=== PATIENT | female | born 1955 | race Hispanic/Latino ===

== ENCOUNTER → 2018-11-10 | Outpatient (CLI) | payer MEDICARE ==
[~2018-11-10] MED LIST: BACL10TA PO; IBUP-2070 PO; LISI-613 PO; NYST5ORA7 TP; ONDA4TAB10 PO; OXYB5TAB10 PO; RANI150C4 PO; ROSU20TA30 PO; SERT100T12 PO
== END | disposition home or self-care (01) ==
LOC: RAH 12:37
PROVIDERS: ATTEND Family Medicine
DX: Z12.31 Encounter for screening mammogram for malignant neoplasm of breast (principal)
CPT/HCPCS: 77067

== ENCOUNTER 2019-09-03 14:34 | Emergency (ER) | payer MEDICARE ==
[~2019-09-03 14:34] MED LIST changes: -OXYB5TAB10 PO; +OXYB5TAB15 PO; -ROSU20TA30 PO; +ROSU20TA31 PO
[2019-09-03] MEDS ORDERED: ONDANSETRON HCL 4 MG/2 ML VIAL ONE (15:04)
[2019-09-03] MEDS ORDERED: SODIUM CHLORIDE 0.9% 1000ML 1,000 ML IV ONE (15:04)
[2019-09-03 15:08] LABS: BASOPHILS % (AUTO) 0.2 % (0.0-5.0); EOSINOPHILS % (AUTO) 0.1 % (0.0-8.0); HEMATOCRIT 43.8 % (36-48); LYMPHOCYTES % (AUTO) 7.6 % (21.0-51.0); MEAN CORPUSCULAR HEMOGLOBIN 27.7 pg (27.0-33.0); MEAN CORPUSCULAR HGB CONC 31.7 g/dL (32.0-36.0); MEAN CORPUSCULAR VOLUME 87.3 fL (79-99); MONOCYTES % (AUTO) 4.3 % (3.0-13.0); NEUTROPHILS % (AUTO) 87.5 % (40.0-77.0); PLATELET COUNT (AUTO) 337 K/uL (130-400); RED BLOOD CELL COUNT(AUTO) 5.02 MIL/uL (4.00-5.50); RED CELL DISTRIBUTION WIDTH 13.7 % (11.0-15.5); WHITE BLOOD COUNT (AUTO) 14.3 K/uL (4.8-10.8)
[2019-09-03 15:51] LABS: POTASSIUM 4.1 mmol/L (3.5-5.1)
[2019-09-03 16:02] LABS: ALBUMIN 3.5 g/dL (3.5-5.0); BILIRUBIN,TOTAL 0.4 mg/dL (0.2-1.0); TOTAL PROTEIN, SERUM 8.1 g/dL (6.0-8.3)
== END 2019-09-03 18:06 | disposition home or self-care (01) ==
LOC: EDH 14:34
DX: K52.9 Noninfective gastroenteritis and colitis, unspecified (principal); I10 Essential (primary) hypertension; Z90.49 Acquired absence of other specified parts of digestive tract; Z90.710 Acquired absence of both cervix and uterus
CPT/HCPCS: 36415; 80053; 83690; 85025; 87804 ×2; 96361; 96374; 99284; J2405; J7030

== ENCOUNTER 2019-09-11 22:58 | Emergency (ER) | payer MEDICARE | END 2019-09-12 01:31 | disposition home or self-care (01) | LOC: EDH 22:58 | DX: R13.10 Dysphagia, unspecified (principal); R49.0 Dysphonia; I10 Essential (primary) hypertension; Z90.49 Acquired absence of other specified parts of digestive tract; Z90.710 Acquired absence of both cervix and uterus; Z85.828 Personal history of other malignant neoplasm of skin | CPT/HCPCS: 70360; 71046 ==

== ENCOUNTER 2019-10-29 23:29 | Observation (INO) | payer MEDICARE ==
[~2019-10-29] VITALS: Ht 162.6 cm; Wt 87.1 kg
[2019-10-30] MEDS ORDERED: ONDANSETRON ODT 4 MG TAB ONE (01:07)
[2019-10-30 01:32] LABS: APPEARANCE,URINE Cloudy (CLEAR); BILIRUBIN,URINE Small (NEGATIVE); COLOR,URINE Dark Yellow (YELLOW); GLUCOSE, URINE (UA) Negative (NEGATIVE); KETONES,URINE Trace mg/dL (NEGATIVE); LEUKOCYTE ESTERASE ,URINE Negative (NEGATIVE); NITRATE,URINE Negative (NEGATIVE); OCCULT BLOOD,URINE Trace (NEGATIVE); PROTEIN,URINE Trace mg/dL (NEGATIVE)
[2019-10-30 01:34] LABS: BASOPHILS % (AUTO) 0.3 % (0.0-5.0); EOSINOPHILS % (AUTO) 0.9 % (0.0-8.0); HEMATOCRIT 40.9 % (36-48); LYMPHOCYTES % (AUTO) 17.4 % (21.0-51.0); MEAN CORPUSCULAR HEMOGLOBIN 27.2 pg (27.0-33.0); MEAN CORPUSCULAR HGB CONC 31.1 g/dL (32.0-36.0); MEAN CORPUSCULAR VOLUME 87.6 fL (79-99); MONOCYTES % (AUTO) 6.2 % (3.0-13.0); NEUTROPHILS % (AUTO) 74.9 % (40.0-77.0); PLATELET COUNT (AUTO) 275 K/uL (130-400); RED BLOOD CELL COUNT(AUTO) 4.67 MIL/uL (4.00-5.50)
[2019-10-30 01:43] LABS: CREATININE 1.2 mg/dL (0.5-1.5); POTASSIUM 3.8 mmol/L (3.5-5.1)
[2019-10-30 01:47] LABS: ALBUMIN 3.2 g/dL (3.5-5.0); BILIRUBIN,TOTAL 0.4 mg/dL (0.2-1.0); TOTAL PROTEIN, SERUM 7.2 g/dL (6.0-8.3)
[2019-10-30 01:57] LABS: BACTERIA,URINE Few /HPF (None Seen); RBC,URINE 0-1 /HPF (0-1); SQUAMOUS EPITHELIAL CELL,UR Moderate /HPF (0-2); WBC,URINE 0-1 /HPF (0-1)
[2019-10-30] MEDS ORDERED: LACTULOSE 20 GM/30 ML UDCUP ONE (05:47)
[2019-10-30] MEDS ORDERED: SODIUM CHLORIDE 0.9% 1000ML 1,000 ML IV ONE (05:47)
--- NOTE | 2019-10-30 07:40 | NUR ---
REPORT RECEIVED FROM ALISE MCNEAL (ED). PATIENT WITH C/O CONSTIPATION WITH HEMORRHOIDS X 5 DAYS. PATIENT ADMITTED FOR FECAL IMPACTION AND CONSTIPATION BY DR. HERRING. LACTULOSE, ENEMA AND 1L BOLUS OF NS GIVEN. PATIENT STABLE AT THIS TIME. DAUGHTER AT BEDSIDE.
[2019-10-30 08:00] VITALS: BP 130/69
[2019-10-30 12:00] VITALS: BP 138/66
[2019-10-30] MEDS ORDERED: ACETAMINOPHEN 325 MG TAB PO PRN ×2 (13:00)
[2019-10-30] MEDS ORDERED: ONDANSETRON HCL 4 MG/2 ML VIAL IV PRN (13:00)
[2019-10-30 16:00] VITALS: BP 139/63
[2019-10-30 20:24] VITALS: BP 119/64
[2019-10-30] MEDS ORDERED: FAMOTIDINE/PF 20 MG/2 ML VIAL IV SCH (21:00)
[2019-10-30] MEDS: SODIUM CHLORIDE 0.9% 1000ML 1,000 ML IV SCH (22:02)
[2019-10-30] MEDS: HYDROCORTISONE 25 MG SUPPOSITORY PR SCH (22:02)
[2019-10-30] MEDS: SENNOSIDES 8.6 MG TABLET PO SCH (22:02)
[2019-10-31 00:24] VITALS: BP 132/75
[2019-10-31 04:24] VITALS: BP 130/63
[2019-10-31] MEDS: SODIUM CHLORIDE 0.9% 1000ML 1,000 ML IV SCH ×4 (04:51→16:40)
[2019-10-31 05:44] LABS: BASOPHILS % (AUTO) 0.4 % (0.0-5.0); EOSINOPHILS % (AUTO) 2.5 % (0.0-8.0); HEMATOCRIT 35.8 % (36-48); MEAN CORPUSCULAR HEMOGLOBIN 27.1 pg (27.0-33.0); MEAN CORPUSCULAR VOLUME 87.5 fL (79-99); MONOCYTES % (AUTO) 8.3 % (3.0-13.0); NEUTROPHILS % (AUTO) 57.5 % (40.0-77.0); PLATELET COUNT (AUTO) 229 K/uL (130-400); RED BLOOD CELL COUNT(AUTO) 4.09 MIL/uL (4.00-5.50); RED CELL DISTRIBUTION WIDTH 14.9 % (11.0-15.5); WHITE BLOOD COUNT (AUTO) 7.7 K/uL (4.8-10.8)
[2019-10-31 06:39] LABS: ALBUMIN 2.4 g/dL (3.5-5.0); BILIRUBIN,TOTAL 0.7 mg/dL (0.2-1.0); CREATININE 1.1 mg/dL (0.5-1.5); TOTAL PROTEIN, SERUM 5.8 g/dL (6.0-8.3)
[2019-10-31 06:55] LABS: POTASSIUM 2.9 mmol/L (3.5-5.1)
--- NOTE | 2019-10-31 08:00 | NUR ---
POTASSIUM 2.9 REPORTED POTASSIUM LEVEL OF 2.9 TO GURMEET MACKEYP, STATED SHE WOULD PUT IN ORDERS FOR A POTASSIUM PROTOCOL.
[2019-10-31 08:15] VITALS: BP 127/84
[2019-10-31] MEDS ORDERED: POLYETHYLENE GLYCOL 3350 17 GM POWD.PACK PO SCH (09:00)
[2019-10-31] MEDS: HYDROCORTISONE 25 MG SUPPOSITORY PR SCH (09:00)
[2019-10-31] MEDS: SENNOSIDES 8.6 MG TABLET PO SCH (09:00)
--- NOTE | 2019-10-31 09:50 | NUR ---
PAGED HOSPITALIST PAGED GURMEET RUBY DEVELOPER, NEEDS ORDERS FOR POTASSIUM PROTOCOL.
[2019-10-31] MEDS ORDERED: POTASSIUM CHLORIDE 20 MEQ ERTAB PO PRN (10:30)
[2019-10-31] MEDS ORDERED: LIDOCAINE HCL-MPF 1% 2ML VIAL IV PRN (10:30)
[2019-10-31] MEDS ORDERED: POTASSIUM CHLORIDE 10MEQ/100ML 100 ML IV PRN (10:30)
[2019-10-31] MEDS: POTASSIUM CHLORIDE 10% ELIXIR 20 MEQ/15 ML UDCUP PO PRN ×3 (10:42→15:13)
--- NOTE | 2019-10-31 10:53 | NUR ---
RD NOTIFICATION DX FECAL IMPACTION, CONSTIPATION. DIET: FULL LIQUIDS/ PO INTAKE 50%. LABS REVIEWED (K 2.9). MEDS REVIEWED (MIRALAX, SENNA). SKIN IS INTACT. HX OF BRAIN TUMOR. S/P RADIOLOGY 2 MONTHS AGO AT [facility]. PT HAS RECEIVED FLEET ENEMA AND STILL NO BM RECORDED. RD RECOMMENDS TO ADVANCE DIET TOLERATED TO HIGH FIBER ENCOURAGE ADEQUATE FLUIDS AND PHYSICAL ACTIVITY DAILY, IF POSSIBLE ADD ENSURE BID TO DIET ORDER MONITOR BM, LABS, PO INTAKE AND TOLERANCE Addendum: 10/31/19 at [address] Amended: Links added.
[2019-10-31 11:37] VITALS: BP 146/76
--- NOTE | 2019-10-31 12:25 | NUR ---
INITIAL MET W PATIENT, SISTER, AND DAUGHTER FOR DISCHARGE PLANNING. PATIENT LIVES ALONE WITHOUT PROVIDER SERVICES. PATIENT IS INDEPENDENT, DRIVE,S BUT ALSO USES DME- CANE, ROLLING WALKER, AND WHEELCHAIR- IS ABLE TO PERFORM SELFCARE INDEPENDENTLY; HOME IS SAFE AND ACCESSIBLE, DCP IS HOME. DAUGHTER MARIE IS HERE FROM [place]; WILL PROVIDE TRANSPORT HOME. MER OJEDA WAS CONTACTED AND WILL SCREEN PATIENT FOR POSSIBLE HELP AT HOME. DC PLAN HOME.
--- NOTE | 2019-10-31 14:10 | NUR ---
TIME SPENT AT BEDSIDE RE INTAKE MET W PATIENT DAUGHTERS, SISTER AT THEIR REQUEST; DAUGHTERS VERY CONCERNED, STATES PATIENT IS SUPPOSED TO HAVE 6 BOTTLES OF ENSURE PLUS PER DAY PER MD GRIDER- AVTAR ZIEGLER. LOOKING FOR A CHAIRIT Y PROGRAM FOR SAME OFFERED OTHER OPTIONS TO INCREASE PROTEIN INTAKE AND PERHAPS DECREASE CONSTIPATION- MOOTOPIA, FAIRLIFE, AND KEFIR, EXAMPLES, BLUEPRINT REPRODUCER CONSULT PLACED AND CALLED TO DEVAN TO ADVISE RE PATIENT
[2019-10-31 17:00] VITALS: BP 147/90
[2019-10-31] MEDS ORDERED: SENN-31 PO (17:59)
--- NOTE | 2019-10-31 18:48 | NUR ---
DISCHARGE DISCHARGE INSTRUCTIONS GIVEN TO PATIENT, VERBALIZED UNDERSTANDING. PRESCRIPTION SENT TO [facility]. IV DISCONTINUED.
[2019-10-31] MEDS ORDERED: LACT10SO62 PO (22:13)
== END 2019-10-31 18:49 | disposition home or self-care (01) ==
LOC: EDH 23:29 → EDHIP 10-30 05:32 → 4BH 10-30 08:33
PROVIDERS: ADMIT Internal Medicine; ATTEND Internal Medicine
DX: K56.41 Fecal impaction (principal); I10 Essential (primary) hypertension; D49.6 Neoplasm of unspecified behavior of brain; K64.9 Unspecified hemorrhoids; Z90.49 Acquired absence of other specified parts of digestive tract; Z90.710 Acquired absence of both cervix and uterus; Z85.841 Personal history of malignant neoplasm of brain
CPT/HCPCS: 36415 ×2; 74176; 80053 ×2; 81001; 83690; 84132; 85025 ×2; 96374; 99285; G0378 ×20; J3490; J7030 ×2

== ENCOUNTER 2021-07-05 23:22 | Emergency (ER) | payer MEDICARE ==
[~2021-07-05] VITALS: Ht 165.1 cm; Wt 86.2 kg
[~2021-07-05 23:22] MED LIST changes: +LACT10SO62 PO; -LISI-613 PO; +LISI20TA24 PO; +SENN-31 PO; +SERT-440 PO; -SERT100T12 PO
[2021-07-06] MEDS ORDERED: ONDANSETRON 4MG INJ IVP ONE
[2021-07-06] MEDS ORDERED: 0.9%NACL 1000ML 1,000 ML IV ONE
[2021-07-06 00:30] LABS: CREATININE 1.1 mg/dL (0.5-1.5)
[2021-07-06 00:34] LABS: ALBUMIN 3.6 g/dL (3.5-5.0); BILIRUBIN,TOTAL 0.6 mg/dL (0.2-1.0); TOTAL PROTEIN, SERUM 7.7 g/dL (6.0-8.3)
[2021-07-06 00:41] LABS: BASOPHILS % (AUTO) 0.3 % (0.0-5.0); EOSINOPHILS % (AUTO) 0.1 % (0.0-8.0); HEMATOCRIT 39.1 % (36-48); LYMPHOCYTES % (AUTO) 13.7 % (21.0-51.0); MEAN CORPUSCULAR HEMOGLOBIN 27.2 pg (27.0-33.0); MEAN CORPUSCULAR HGB CONC 31.7 g/dL (32.0-36.0); MEAN CORPUSCULAR VOLUME 85.7 fL (79-99); MONOCYTES % (AUTO) 4.9 % (3.0-13.0); NEUTROPHILS % (AUTO) 80.7 % (40.0-77.0); PLATELET COUNT (AUTO) 321 K/uL (130-400); RED BLOOD CELL COUNT(AUTO) 4.56 MIL/uL (4.00-5.50); RED CELL DISTRIBUTION WIDTH 14.9 % (11.0-15.5); WHITE BLOOD COUNT (AUTO) 10.7 K/uL (4.8-10.8)
[2021-07-06] MEDS ORDERED: ONDA4TAB4 PO (01:35)
[2021-07-06 02:25] VITALS: BP 125/62
== END 2021-07-06 02:33 | disposition home or self-care (01) ==
LOC: EDH 23:22
DX: R11.10 Vomiting, unspecified (principal); R51.9 Headache, unspecified; R10.9 Unspecified abdominal pain; E78.00 Pure hypercholesterolemia, unspecified; I10 Essential (primary) hypertension; Z79.1 Long term (current) use of non-steroidal anti-inflammatories (NSAID); Z79.899 Other long term (current) drug therapy; Z85.830 Personal history of malignant neoplasm of bone
CPT/HCPCS: 36415; 70450; 74018; 80053; 83690; 85025; 96374; 99285; J2405

== ENCOUNTER 2021-09-03 16:14 | Emergency (ER) | payer MEDICARE ==
[~2021-09-03] VITALS: Ht 160 cm; Wt 81.6 kg
[~2021-09-03 16:14] MED LIST changes: +ONDA4TAB4 PO
[2021-09-03 16:41] VITALS: BP 125/71
[2021-09-03] MEDS ORDERED: KETOROLAC 30MG VIAL (30MG/ML) IM ONE (18:30)
== END 2021-09-03 18:58 | disposition home or self-care (01) ==
LOC: EDH 16:14
DX: R13.10 Dysphagia, unspecified (principal); E78.00 Pure hypercholesterolemia, unspecified; F32.A Depression, unspecified; I10 Essential (primary) hypertension; Z79.1 Long term (current) use of non-steroidal anti-inflammatories (NSAID); Z79.899 Other long term (current) drug therapy; Z85.830 Personal history of malignant neoplasm of bone; Z90.49 Acquired absence of other specified parts of digestive tract
CPT/HCPCS: 70450; 70490; 96372; 99284; J1885

== ENCOUNTER 2021-12-20 15:58 | Emergency (ER) | payer MEDICARE ==
[~2021-12-20] VITALS: Ht 162.6 cm; Wt 74.8 kg
[2021-12-20] MEDS ORDERED: 0.9%NACL 1000ML 1,000 ML IV SCH (16:00)
[2021-12-20] MEDS ORDERED: PROMETHAZINE HCL 25 MG/ML 1ML AMPULE IM ONE (16:00)
[2021-12-20 16:22] LABS: BASOPHILS % (AUTO) 0.3 % (0.0-5.0); EOSINOPHILS % (AUTO) 0.5 % (0.0-8.0); HEMATOCRIT 37.9 % (36-48); LYMPHOCYTES % (AUTO) 19.9 % (21.0-51.0); MEAN CORPUSCULAR HEMOGLOBIN 29.3 pg (27.0-33.0); MEAN CORPUSCULAR HGB CONC 32.2 g/dL (32.0-36.0); MEAN CORPUSCULAR VOLUME 90.9 fL (79-99); MONOCYTES % (AUTO) 4.6 % (3.0-13.0); NEUTROPHILS % (AUTO) 74.4 % (40.0-77.0); PLATELET COUNT (AUTO) 254 K/uL (130-400); RED BLOOD CELL COUNT(AUTO) 4.17 MIL/uL (4.00-5.50); RED CELL DISTRIBUTION WIDTH 13.2 % (11.0-15.5); WHITE BLOOD COUNT (AUTO) 9.3 K/uL (4.8-10.8)
[2021-12-20] MEDS ORDERED: ACETAMINOPHEN 650 MG/20.3 ML UDCUP ONE (16:28)
[2021-12-20] MEDS ORDERED: CYCLOBENZAPRINE HCL 10 MG TABLET PO ONE (16:30)
[2021-12-20] MEDS ORDERED: ACETAMINOPHEN 500 MG TABLET PO ONE (16:30)
[2021-12-20 16:35] LABS: POTASSIUM 3.9 mmol/L (3.5-5.1)
[2021-12-20 16:49] LABS: ALBUMIN 3.4 g/dL (3.5-5.0); BILIRUBIN,TOTAL 0.3 mg/dL (0.2-1.0); TOTAL PROTEIN, SERUM 7.2 g/dL (6.0-8.3)
[2021-12-20 17:19] LABS: APPEARANCE,URINE Clear (CLEAR); BILIRUBIN,URINE Negative (NEGATIVE); COLOR,URINE Yellow (YELLOW); GLUCOSE, URINE (UA) Negative (NEGATIVE); KETONES,URINE Negative (NEGATIVE); LEUKOCYTE ESTERASE ,URINE Negative (NEGATIVE); NITRATE,URINE Negative (NEGATIVE); OCCULT BLOOD,URINE Negative (NEGATIVE); PH,URINE 6.5 (5.0-8.0); PROTEIN,URINE Negative (NEGATIVE); UROBILINOGEN,URINE 0.2 mg/dL (0.2-1.0)
[2021-12-20] MEDS ORDERED: CYCL10TA16 PO (18:41)
[2021-12-20] MEDS ORDERED: PHEN12S PR (18:41)
[2021-12-20] MEDS ORDERED: ACET160E39 PO (18:41)
[2021-12-20 18:54] VITALS: BP 125/85
== END 2021-12-20 18:56 | disposition home or self-care (01) ==
LOC: EDH 15:58
DX: R51.9 Headache, unspecified (principal); R11.2 Nausea with vomiting, unspecified; R19.7 Diarrhea, unspecified; I10 Essential (primary) hypertension; Z79.899 Other long term (current) drug therapy
CPT/HCPCS: 36415; 70450; 80053; 81003; 83605; 84484; 85025; 87040 ×2; 96360; 96372; 99284; J2550; J7030

== ENCOUNTER 2021-12-21 19:43 | Emergency (ER) | payer MEDICARE ==
[~2021-12-21] VITALS: Ht 152.4 cm; Wt 79.4 kg
[~2021-12-21 19:43] MED LIST changes: +ACET160E39 PO; +CYCL10TA16 PO; +PHEN12S PR
[2021-12-21 20:26] LABS: BASOPHILS % (AUTO) 0.3 % (0.0-5.0); HEMATOCRIT 34.6 % (36-48); LYMPHOCYTES % (AUTO) 31.7 % (21.0-51.0); MEAN CORPUSCULAR HEMOGLOBIN 29.9 pg (27.0-33.0); MEAN CORPUSCULAR HGB CONC 32.7 g/dL (32.0-36.0); MEAN CORPUSCULAR VOLUME 91.5 fL (79-99); MONOCYTES % (AUTO) 6.6 % (3.0-13.0); PLATELET COUNT (AUTO) 234 K/uL (130-400); RED BLOOD CELL COUNT(AUTO) 3.78 MIL/uL (4.00-5.50); RED CELL DISTRIBUTION WIDTH 13.3 % (11.0-15.5); WHITE BLOOD COUNT (AUTO) 7.6 K/uL (4.8-10.8)
[2021-12-21 20:37] LABS: POTASSIUM 3.6 mmol/L (3.5-5.1)
[2021-12-21 20:46] LABS: ALBUMIN 3.1 g/dL (3.5-5.0); BILIRUBIN,TOTAL 0.4 mg/dL (0.2-1.0); MAGNESIUM 1.9 mg/dL (1.80-2.40); TOTAL PROTEIN, SERUM 6.5 g/dL (6.0-8.3)
[2021-12-21 20:50] LABS: B-TYPE NATRIURETIC PEPTIDE 101 pg/mL (0-100)
[2021-12-21] MEDS ORDERED: DiphenhydrAMINE HCL 50 MG/ML VIAL IV ONE (21:30)
[2021-12-21] MEDS ORDERED: 0.9%NACL 1000ML 1,000 ML IV ONE (21:30)
[2021-12-21] MEDS ORDERED: SOLU-MEDROL 125MG VIAL IVP ONE (21:30)
[2021-12-21] MEDS ORDERED: KETOROLAC 30MG VIAL (30MG/ML) IVP ONE (21:30)
[2021-12-21] MEDS ORDERED: METOCLOPRAMIDE 10 MG/2 ML VIAL IVP ONE (21:30)
[2021-12-21 21:44] LABS: ERYTHROCYTE SEDIMENTATION RATE 38 MM/HR (0-30)
[2021-12-21 22:17] LABS: APPEARANCE,URINE Clear (CLEAR); BILIRUBIN,URINE Negative (NEGATIVE); COLOR,URINE Yellow (YELLOW); GLUCOSE, URINE (UA) Negative (NEGATIVE); KETONES,URINE Negative (NEGATIVE); LEUKOCYTE ESTERASE ,URINE Trace (NEGATIVE); NITRATE,URINE Negative (NEGATIVE); OCCULT BLOOD,URINE Negative (NEGATIVE); PH,URINE 5.5 (5.0-8.0); PROTEIN,URINE Negative (NEGATIVE); UROBILINOGEN,URINE 0.2 mg/dL (0.2-1.0)
[2021-12-21] MEDS ORDERED: GADOTERATE MEGLUMINE 10 MMOL/20 ML VIAL IV ONE (22:22)
[2021-12-21 22:29] LABS: BACTERIA,URINE None Seen /HPF (None Seen); RBC,URINE None Seen /HPF (0-1); WBC,URINE 0-1 /HPF (0-1)
[2021-12-21 22:30] LABS: SQUAMOUS EPITHELIAL CELL,UR Few /HPF (0-2)
[2021-12-22] MEDS ORDERED: TRAM50TA2 PO (01:59)
[2021-12-22 02:30] VITALS: BP 142/60
== END 2021-12-22 03:11 | disposition home or self-care (01) ==
LOC: EDH 19:43
DX: C41.2 Malignant neoplasm of vertebral column (principal); R51.9 Headache, unspecified; Z20.822 Contact with and (suspected) exposure to COVID-19; F32.A Depression, unspecified; I10 Essential (primary) hypertension; Z90.49 Acquired absence of other specified parts of digestive tract; Z79.899 Other long term (current) drug therapy; Z88.8 Allergy status to other drugs, medicaments and biological substances; Z98.890 Other specified postprocedural states
CPT/HCPCS: 36415; 70553; 80053; 81001; 82550; 83735; 83880; 84484; 85025; 85651; 87635; 96361; 96374; 96375; 99285; A9575; C9803; J1200; J1885; J2765; J2930; J7030

== ENCOUNTER → 2022-05-27 | Outpatient (CLI) | payer MEDICARE ==
[~2022-05-27] MED LIST changes: +TRAM50TA2 PO
== END | disposition home or self-care (01) ==
LOC: RAH 12:43
PROVIDERS: ATTEND Family Medicine
DX: Z12.31 Encounter for screening mammogram for malignant neoplasm of breast (principal)
CPT/HCPCS: 77067

== ENCOUNTER → 2023-06-19 | Outpatient (CLI) | payer MEDICARE ==
[~2023-06-19] MED LIST changes: -LACT10SO62 PO; +LACT10SO95 PO; -OXYB5TAB15 PO; +OXYB5TAB20 PO; -ROSU20TA31 PO; +ROSU20TA73 PO
== END | disposition home or self-care (01) ==
LOC: RAH 14:08
PROVIDERS: ATTEND Family Medicine
DX: Z12.31 Encounter for screening mammogram for malignant neoplasm of breast (principal)
CPT/HCPCS: 77067

== ENCOUNTER 2023-09-10 17:34 | Emergency (ER) | payer MEDICARE ==
[~2023-09-10] VITALS: Ht 162.6 cm; Wt 69.9 kg
[2023-09-10 21:28] LABS: HEMATOCRIT 37.2 % (36-48); MEAN CORPUSCULAR HEMOGLOBIN 27.4 pg (27.0-33.0); MEAN CORPUSCULAR HGB CONC 30.9 g/dL (32.0-36.0); MEAN CORPUSCULAR VOLUME 88.6 fL (79-99); PLATELET COUNT (AUTO) 253 K/uL (130-400); RED CELL DISTRIBUTION WIDTH 14.6 % (11.0-15.5); WHITE BLOOD COUNT (AUTO) 8.7 K/uL (4.8-10.8)
[2023-09-10] MEDS ORDERED: ACETAMINOPHEN 650 MG/20.3 ML UDCUP PEG ONE (21:30)
[2023-09-10 21:39] LABS: CREATININE 0.9 mg/dL (0.5-1.5); POTASSIUM 3.9 mmol/L (3.5-5.1)
[2023-09-10 21:41] LABS: INR 0.96 (0.85-1.15); PROTHROMBIN TIME 11.2 SEC (9.6-11.6)
[2023-09-10 21:44] LABS: ALBUMIN 2.9 g/dL (3.5-5.0); BILIRUBIN,TOTAL 0.3 mg/dL (0.2-1.0); TOTAL PROTEIN, SERUM 6.7 g/dL (6.0-8.3)
[2023-09-10 22:06] LABS: LYMPHOCYTES % (MANUAL) 30 % (22-44); MAN.DIFF COMMENT-IMPRESSION MANUAL DIFFERENTIAL; MONOCYTES % (MANUAL) 3 % (2-9); PLATELET MORPHOLOGY COMMENT ADEQUATE; SEGMENTED NEUTROPHILS % 67 % (40-70); TOTAL CELLS COUNTED 100
[2023-09-10] MEDS ORDERED: CEPH500B PO (22:45)
[2023-09-10] MEDS ORDERED: MELO10CA3 PO (22:45)
[2023-09-10 22:48] LABS: PARTIAL THROMBOPLASTIN TIME 22.5 SEC (26.3-35.5)
[2023-09-10] MEDS ORDERED: OCTYL 2-CYANOACRYLATE 1 EACH TP SCH (23:00)
[2023-09-10 23:32] VITALS: BP 149/60; PULSE 65; RESP 18; O2SAT 98
== END 2023-09-10 23:51 | disposition home or self-care (01) ==
LOC: EDH 17:34
DX: S02.2XXA Fracture of nasal bones, initial encounter for closed fracture (principal); S01.81XA Laceration without foreign body of other part of head, initial encounter; F32.A Depression, unspecified; I10 Essential (primary) hypertension; Z79.1 Long term (current) use of non-steroidal anti-inflammatories (NSAID); Z79.899 Other long term (current) drug therapy; Z85.830 Personal history of malignant neoplasm of bone; Z90.49 Acquired absence of other specified parts of digestive tract; Z91.041 Radiographic dye allergy status; W18.39XA Other fall on same level, initial encounter; Y93.89 Activity, other specified; Y92.89 Other specified places as the place of occurrence of the external cause; Y99.8 Other external cause status
CPT/HCPCS: 12011; 36415; 70450; 70486; 72125; 80053; 85025; 85610; 85730

== ENCOUNTER → 2024-05-11 | Outpatient (CLI) | payer MEDICARE ==
[~2024-05-11] MED LIST changes: +CEPH500B PO; +GADOTERATE MEGLUMINE 10 MMOL/20 ML VIAL IV ONE; +MELO10CA3 PO; +ONDA-243 PO; -ONDA4TAB10 PO
== END | disposition home or self-care (01) ==
LOC: RAH 12:15
PROVIDERS: ATTEND Family Medicine
DX: C41.0 Malignant neoplasm of bones of skull and face (principal); G31.89 Other specified degenerative diseases of nervous system; Z98.890 Other specified postprocedural states
CPT/HCPCS: 70553; A9575

== ENCOUNTER 2024-10-18 17:25 | Emergency (ER) | payer MEDICARE ==
[~2024-10-18] VITALS: Ht 165.1 cm; Wt 70.3 kg
[~2024-10-18 17:25] MED LIST changes: -GADOTERATE MEGLUMINE 10 MMOL/20 ML VIAL IV ONE; +LACT-451 PO; -LACT10SO95 PO; +NYST100033 TP; -NYST5ORA7 TP; -ROSU20TA73 PO; +ROSU20TA98 PO
--- NOTE | 2024-10-18 18:01 | EKG ---
[facility] Test Date: 2024-10-18 Test Time: 17:54:41 Pat Name: CHANDRAKANT ECKERT Department: ED Room: Gender: F Legal Mediator: [id number] : 1955 Requested By: ADELITA NIX Order Number: [id number] Reading MD: Ed Isaacs Measurements Intervals [place] Rate: 78 P: 69 [place]: 146 QRS: 63 QRSD: 73 T: 30 QT: 346 QTc: 395 Interpretive Statements Sinus rhythm No previous ECG available for comparison Electronically Signed On 10-19-2024 12:50:06 COMMERCIAL CENTER MANAGER by Ed Isaacs Please click the below link to view image of tracing.
[2024-10-18 18:18] LABS: BASOPHILS # (AUTO) 0.03 K/uL (0.00-0.20); BASOPHILS % (AUTO) 0.6 % (0.0-5.0); EOSINOPHILS # (AUTO) 0.04 K/uL (0.00-0.70); EOSINOPHILS % (AUTO) 0.8 % (0.0-8.0); HEMATOCRIT 38.5 % (36-48); IMMATURE GRANULOCYTE ABSOLUTE 0.01 K/uL (0-1); LYMPHOCYTES # (AUTO) 1.8 K/uL (1.0-4.8); LYMPHOCYTES % (AUTO) 38.1 % (21.0-51.0); MEAN CORPUSCULAR HEMOGLOBIN 34.5 pg (27.0-33.0); MEAN CORPUSCULAR HGB CONC 32.2 g/dL (32.0-36.0); MEAN CORPUSCULAR VOLUME 107.2 fL (79-99); MONOCYTES # (AUTO) 0.4 K/uL (0.1-1.0); MONOCYTES % (AUTO) 8.2 % (3.0-13.0); NEUTROPHILS # (AUTO) 2.5 K/uL (1.8-7.7); NEUTROPHILS % (AUTO) 52.1 % (40.0-77.0); PLATELET COUNT (AUTO) 224 K/uL (130-400); RED BLOOD CELL COUNT(AUTO) 3.59 MIL/uL (4.00-5.50); RED CELL DISTRIBUTION WIDTH 13.3 % (11.0-15.5); WHITE BLOOD COUNT (AUTO) 4.8 K/uL (4.8-10.8)
[2024-10-18 18:23] LABS: CREATININE 1.2 mg/dL (0.5-1.0)
--- NOTE | 2024-10-18 20:14 | ERN ---
ED Note History of Present Illness Stated Complaint: HIGH BP, BACK NECK PAIN, TUMOR Chief Complaint: Hypertension Time Seen by MD: 17:32 Time Seen by Midlevel: 17:35 Dictation: 68-year-old female with a history of high blood your and a neck tumor coming in complaining of severe headache AND HYPERTENSION on and off since 09/27. Patient states she had a fall from her bed on that day and since then her headaches have been intermittent. Patient states usually she takes her lisinopril and her headache and her blood pressure come down. Today patient states bit despite taking her lisinopril blood pressure still elevated patient is still complaining of a headache. PATIENT WENT TO GO SEE DR. MORELOS TODAY WHICH PRESCRIBED ADDITIONAL HYPERTENSIVE MEDICATION WHICH SHE DID NOT TAKE. Allergies: Coded Allergies: Iodinated Contrast Media (Unverified Allergy, Unknown, 12/21/21) No Allergy Information Available (Verified Allergy, Unknown, 08/29/14) Home Meds Active Scripts Meloxicam, Submicronized (Meloxicam) 10 Mg Capsule, 10 MG PO DAILY, #30 CAP Prov:SJ GEE MD 09/10/23 Cephalexin Monohydrate (Keflex) 500 Mg Cap, 500 MG PO QID for 7 Days, #28 CAP Prov:SJ GEE MD 09/10/23 Tramadol HCl (Ultram) 50 Mg Tab, 50 MG PO TID PRN for pain, #15 TAB 0 Refills Prov:ANDREW KEENE MD 12/22/21 Acetaminophen (Acetaminophen) 160 Mg/5 Ml Elixir, 480 MG PO a4h, #500 ML Prov:CONNIE SUMMERS 12/20/21 Cyclobenzaprine HCl (Flexeril) 10 Mg Tab, 10 MG PO BID, #40 TAB Prov:CONNIE SUMMERS 12/20/21 Promethazine HCl (Phenergan Supp) 12.5 Mg Supp, 25 MG WV TIDP, #30 SUPP Prov:CONNIE SUMMERS 12/20/21 Ondansetron HCl (Zofran) 4 Mg Tablet, 4 MG PO TID PRN for NAUSEA/VOMITING, #15 TAB 0 Refills Prov:ALPESH HOOVER MD 07/06/21 Lactulose (Lactulose) 10 Gm/15 Ml Solution, 10 GM PO BID PRN for constipation for 10 Days, ML Prov:NELIDA COLEY I KILN FURNITURE CASTER 10/31/19 Sennosides/Docusate Sodium (Sennosides-Docusate Sodium Tab) 1 Each Tablet, 1 EACH PO DAILY for 10 Days, #10 TAB Prov:NELIDA COLEY I KILN FURNITURE CASTER 10/31/19 Reported Medications Nystatin (Nystatin) 100,000 Unit/1 Ml Oral.susp, 121062 UNIT TP AD, ML 02/11/17 Ibuprofen (Ibuprofen) 600 Mg Tablet, 600 MG PO Q8HRS PRN for PAIN LEVEL 1 TO 5, TAB 02/11/17 Baclofen (Baclofen) 10 Mg Tablet, 10 MG PO TID PRN for PAIN LEVEL 1 TO 5, TAB 02/11/17 Oxybutynin Chloride (Oxybutynin Chloride) 5 Mg Tablet, 5 MG PO BID, TAB 02/11/17 Sertraline HCl (Sertraline HCl) 100 Mg Tablet, 100 MG PO DAILY, TAB 02/11/17 Lisinopril (Lisinopril) 20 Mg Tablet, 20 MG PO DAILY, TAB 02/11/17 Rosuvastatin Calcium (Rosuvastatin Calcium) 20 Mg Tablet, 20 MG PO HS, TAB 02/11/17 Ondansetron (Ondansetron Odt) 4 Mg Tab.rapdis, 4 MG PO TID for VOMITING for 30 Days, TAB 0 Refills 08/29/14 Ranitidine HCl (Ranitidine HCl) 150 Mg Capsule, 150 MG PO BID for GI UPSET/UPSET STOMACH for 30 Days, MG 0 Refills 08/29/14 Past Medical History Past Medical History: Depression, Hypertension, Other Additional 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 Surgical History: Cholecystectomy, Surgical History Other: BRAIN SX X 3 Family History: Negative Social History: Negative, Lives with family, Other Review of System Dictation Constitutional: Negative for fever,chills, and weight loss, generalized weakness fatigue Eyes: Negative for injury, pain,redness, and discharge ENT: Negative for injury,pain or swelling Cardiovascular: Negative for chest pain, palpitations, and edema Respiratory: Negative for shortness of breath, cough, and wheezing, Abdomen/GI: Negative for abdominal pain, nausea, vomiting, diarrhea, and constipation Back: Negative for injury and pain : Negative for injury, bleeding and discharge MS/Extremity: Negative for injury and deformity Skin: Negative for rash, and discoloration Neuro: Negative for headache, weakness, numbness, tingling, and seizure Psych: Negative for suicide ideation, homicidal ideation, and hallucinations Review of Systems: was completed Initial Vital Sign VS Vital Signs Date Time Temp Pulse Resp B/P (MAP) Pulse Ox O2 Delivery O2 Flow Rate FiO2 10/18/24 17:40 98.4 82 16 179/93 100 Room Air 0 10/18/24 20:55 21 Physical Exam Dictation General: awake, alert, NAD Head/Face: Normocephalic, atraumatic Eyes: PERRL, EOMI, vision at baseline ENT: oral cavity clear, TMs clear, no signs of infection Neck: Trachea midline, supple, no nuchal rigidity Cardiovascular: RRR, normal S1/S2, No MRGs, no JVD Respiratory: CTAB, no respiratory distress, No rales or wheezes Abdomen: Soft, non-tender, non-distended, normal bowel sounds, no guarding or rebound. Skin: Warm, dry, normal turgor, no rash MS/Extremity: Pulses equal, no cyanosis, neurovascular intact, FROM Neuro: COAx4, GCS 15, strength 5/5, CN 2-12 intact, normal cerebellar exam, normal gait, Psych: Normal behavior, mood, and affect normal Results (Laboratory/Radiology) Laboratory/Radiology Laboratory Tests Test 10/18/24 18:09 White Blood Count 4.8 K/uL (4.8-10.8) Red Blood Count 3.59 MIL/uL (4.00-5.50) L Hemoglobin 12.4 g/dL (12.0-16.0) Hematocrit 38.5 % (36-48) Mean Corpuscular Volume 107.2 fL (79-99) H Mean Corpuscular Hemoglobin 34.5 pg (27.0-33.0) H Mean Corpuscular Hemoglobin Concent 32.2 g/dL (32.0-36.0) Red Cell Distribution Width 13.3 % (11.0-15.5) Platelet Count 224 K/uL (130-400) Mean Platelet Volume 10.0 fL (7.5-10.5) Immature Granulocyte % (Auto) 0.2 % (0-1) Neutrophils (%) (Auto) 52.1 % (40.0-77.0) Lymphocytes (%) (Auto) 38.1 % (21.0-51.0) Monocytes (%) (Auto) 8.2 % (3.0-13.0) Eosinophils (%) (Auto) 0.8 % (0.0-8.0) Basophils (%) (Auto) 0.6 % (0.0-5.0) Neutrophils # (Auto) 2.5 K/uL (1.8-7.7) Lymphocytes # (Auto) 1.8 K/uL (1.0-4.8) Monocytes # (Auto) 0.4 K/uL (0.1-1.0) Eosinophils # (Auto) 0.04 K/uL (0.00-0.70) Basophils # (Auto) 0.03 K/uL (0.00-0.20) Absolute Immature Granulocyte (auto 0.01 K/uL (0-1) Nucleated Red Blood Cells 0.0 % (0.0-0.19) Red Blood Cell Morphology See comments Sodium Level 142 mmol/L (136-145) Potassium Level 4.0 mmol/L (3.5-5.1) Chloride Level 105 mmol/L (101-111) Carbon Dioxide Level 33 mmol/L (21-32) H Blood Urea Nitrogen 19 mg/dL (7-18) H Creatinine 1.2 mg/dL (0.5-1.0) H Glomerular Filtration Rate Calc 49 mL/min (>90) Random Glucose 93 mg/dL (70-105) Total Calcium 9.5 mg/dL (8.5-10.1) Troponin I High Sensitivity 6 ng/L (4-50) Labs Reviewed?: Yes EKG Comment: Date:10/18/24 Time:1754 Ventricular rate:78 WV interval:146 QRS duration:63 QT/QTc:346/395 EKG interpretation: Sinus rhythm Reviewed by ED Attending no STEMI interpreted by ER CT Scan Comment: [place] [address] [address] IMAGING REPORT Signed PATIENT: CHANDRAKANT ECKERT MR#: [id number] : 1955 SEX: F AGE: 68 LOCATION: [facility] ORDER 21 STATUS: REG ER REPORT#: [id number] SERVICE 19 REASON: severe ROSADO, ORDERING PHYSICIAN: ADELITA NIX NP PROCEDURE: HEAD WO - CT HEAD/BRAIN W/O CONTRAST CT HEAD/BRAIN W/O CONTRAST HISTORY: Severe headaches COMPARISON: None TECHNIQUE: Multiple sequential axial images of the head were obtained from the base of the skull through vertex. Patient was not given contrast through intravenous route. FINDINGS: The ventricles and extraventricular CSF spaces are dilated consistent with cerebral atrophy. Nonspecific white matter changes seen. There is no midline shift, mass effect or herniation. No acute intracranial bleed is seen. Visualized portion of the paranasal sinuses are grossly within normal limits. IMPRESSION: 1. No acute intracranial bleed is seen. 2. Atrophy with white matter changes. CT was performed with one or more following dose reduction techniques: automated exposure control, adjustment of the mA and kv according to patient's size, or use of a iterative reconstruction technique. DICTATED BY: SHASHI WOLFE MD DATE: 10/18/242107 ELECTRONICALLY SIGNED BY: SHASHI WOLFE MD DATE: 10/18/242111 [place] [address] IMAGING REPORT Signed PATIENT: CHANDRAKANT ECKERT MR#: [id number] : 1955 SEX: F AGE: 68 LOCATION: [facility] ORDER 21 STATUS: REG ER [facility] REPORT#: [id number] SERVICE 19 REASON: severe ROSADO, ORDERING PHYSICIAN: ADELITA NIX NP PROCEDURE: C SPIN WO - CT CERVICAL SPINE W/O CONTRAST CT CERVICAL SPINE W/O CONTRAST HISTORY: Severe headaches COMPARISON: None TECHNIQUE: Multiple sequential axial images of the cervical spine were obtained including post processing sagittal and coronal reconstruction images. Patient was not given contrast through intravenous route. FINDINGS: Postop changes are seen of the cervical spine with laminectomy changes posteriorly. This is seen at C2-C4 levels. Central canal narrowing is seen throughout the cervical spine. There are artifacts limiting evaluation. Disc space narrowing is seen at the C5-6 level. There is bone osteopenia. There is straightening of normal lordotic cervical curvature which may be related to muscle spasm or positioning. There is no loss of vertebral height. Evaluation for disc and cord pathology is limited with CT study. No evidence of fracture or dislocation is seen. IMPRESSION: 1. No fracture is seen. DJD with spondylosis. Postop changes limiting evaluation. CT was performed with one or more following dose reduction techniques: automated exposure control, adjustment of the mA and kv according to patient's size, or use of a iterative reconstruction technique. DICTATED BY: SHASHI WOLFE MD DATE: 10/18/242109 ELECTRONICALLY SIGNED BY: SHASHI WOLFE MD DATE: 10/18/242114 ED Course ED Course Orders Procedure Category Date Status Time Cbc With Differential LAB 10/18/24 Complete 17:46 Basic Metabolic Panel LAB 10/18/24 Complete 17:46 Troponin I High LAB 10/18/24 Complete Sensitivity 17:46 12 Lead Ekg Tracing- EKG 10/18/24 Complete Technical 17:46 0.9%Nacl 1000ml (Ns PHA 10/18/24 Complete 1000ml) 20:09 Ct Head/Brain W/O CT 10/18/24 Resulted Contrast 20:20 Ct Cervical Spine W/O CT 10/18/24 Resulted Contrast 20:20 Hydralazine 20mg Inj PHA 10/18/24 Complete (Apresoline 20mg In 20:20 Morphine 2mg Syg PHA 10/18/24 Complete (Morphine 2mg Syg) 20:20 Ondansetron 4mg Inj PHA 10/18/24 Complete (Zofran 4mg Inj) 20:20 Meclizine Hcl 25 Mg PHA 10/18/24 Complete (Antivert 25 Mg) 20:20 Methocarbamol PHA 10/18/24 Complete (Methocarbamol) 21:34 Morphine 2mg Syg PHA 10/18/24 Complete (Morphine 2mg Syg) 21:34 Dexamethasone 4mg/Ml PHA 10/18/24 Verified 1ml Vial (Dexametha 22:24 Hydromorphone 0.5mg PHA 10/18/24 Verified Syg (Dilaudid 0.5mg 22:24 Lidocaine (Lidoderm PHA 10/18/24 Verified Patch 5%) 22:24 Current Medications Medications (Trade) Dose Ordered Sig/Tushar Route PRN Reason Start Time Stop Time Status Last Admin Dose Admin Hydralazine HCl (APRESOLine 20MG INJ) 10 mg ONCE STAT IV 10/18/24 20:20 10/18/24 20:23 DC 10/18/24 21:42 Meclizine HCl (ANTIvert 25 mg) 25 mg ONCE STAT PO 10/18/24 20:20 10/18/24 20:23 DC 10/18/24 20:35 Methocarbamol (methoCARBamol) 1,000 mg ONCE STAT PO 10/18/24 21:34 10/18/24 21:38 DC 10/18/24 21:43 Morphine Sulfate (morPHINE 2MG SYG) 2 mg ONCE STAT IVP 10/18/24 20:20 10/18/24 20:23 DC 10/18/24 20:55 Morphine Sulfate (morPHINE 2MG SYG) 2 mg ONCE STAT IVP 10/18/24 21:34 10/18/24 21:38 DC 10/18/24 21:42 Ondansetron HCl (zoFRAN 4MG INJ) 4 mg ONCE STAT IVP 10/18/24 20:20 10/18/24 20:23 DC 10/18/24 20:35 Sodium Chloride 1,000 ml @ 500 mls/hr Q2H STAT IV 10/18/24 20:09 10/18/24 22:08 DC 10/18/24 20:35 Vital Signs Date Time Temp Pulse Resp B/P (MAP) Pulse Ox O2 Delivery O2 Flow Rate FiO2 10/18/24 21:54 77 18 140/79 96 Room Air* 0 10/18/24 21:30 98.4 81 18 164/74 100 Room Air* 0 10/18/24 20:55 81 18 186/89 98 Room Air* 0 10/18/24 17:40 98.4 82 16 179/93 100 Room Air 0 Medical Decision Making MDM MDM:68-year-old female with a history of high blood your and a neck tumor coming in complaining of severe headache AND HYPERTENSION on and off since 09/27. Patient states she had a fall from her bed on that day and since then her headaches have been intermittent. Patient states usually she takes her lisinopril and her headache and her blood pressure come down. Today patient states bit despite taking her lisinopril blood pressure still elevated patient is still complaining of a headache. PATIENT WENT TO GO SEE DR. MORELOS TODAY WHICH PRESCRIBED ADDITIONAL HYPERTENSIVE MEDICATION WHICH SHE DID NOT TAKE. CBC SHOWS NO LEUKOCYTOSIS, NO ANEMIA, NO THROMBOCYTOPENIA. CHEMISTRY SHOWS MILD ELEVATION OF CREATININE 1.2, THIS COULD BE RELATED TO DEHYDRATION. AFTER 4 MG OF MORPHINE PATIENT WAS STILL COMPLAINING OF HEADACHE AND NECK PAIN, ER MD AT BEDSIDE ASSESSING PATIENT. ER MD RECOMMENDED DEXAMETHASONE, 0.5 OF DILAUDID AND LIDOCAINE PATCH. ER MD SPOKE TO PATIENT AND FAMILY REGARDING TAKING AT HOME PAIN MEDICATION, PATIENT HAS TRAMADOL AT HOME. WE WILL PRESCRIBE ADDITIONAL LIDOCAINE PATCH AND HAVE PATIENT FOLLOW UP WITH HER ONCOLOGIST AND HER NEUROSURGEON. BOTH DAUGHTER AND PATIENT VERBALIZED UNDERSTANDING. VITAL SIGNS HAVE REMAINED STABLE BLOOD PRESSURE HAS IMPROVED IN THE 140 SYSTOLIC. EDUCATED ON SIGNS AND SYMPTOMS OF WHEN TO RETURN BACK TO THE EMERGENCY ROOM. DIFFERENTIAL DIAGNOSIS: ICH,, HYPERTENSIVE URGENCY, RATIONALE: TESTS CONSIDERED AND ORDERED SECONDARY TO SHARED DECISION MAKING I NCLUDE: PREVIOUS OUTSIDE RECORDS REVIEWED: OLD ER VISITS. RISK OF COMPLICATION AND/OR MORBIDITY OR MORTALITY OF PATIENT MANAGEMENT: NONE MEDICATIONS-PER MEDICATION RECONCILIATION NEED FOR HOSPITALIZATION: PATIENT DOES NOT MEET CRITERIA FOR HOSPITALIZATION. NEED FOR EMERGENCY MAJOR/MINOR SURGERY: NO THERE ARE NO SOCIAL CONCERNS WITH THIS PATIENT. PRESCRIPTION DRUG MANAGEMENT PRESCRIPTIONS WILL INCLUDE SYMPTOMATIC CARE PATIENT'S PRIOR EXTERNAL MEDICAL RECORDS FROM OTHER ER VISITS WERE REVIEWED BY ME INDICATED. PRIOR TESTING AND RESULTS FROM PREVIOUS VISITS WERE REVIEWED. PRIOR TESTS WERE TAKEN INTO ACCOUNT WITH MEDICAL DECISION MAKING AND RESOURCE UTILIZATION, INDEPENDENT HISTORIAN/HISTORIANS WERE USED TO OBTAIN COMPLETE MEDICAL HISTORY. I INDEPENDENTLY INTERPRETED THE TEST THAT WERE PERFORMED, RESULTS WERE REVIEWED BY ME AND CONSIDERED FINDINGS ON RADIOLOGY IF ORDERED. MEDICAL MANAGEMENT AND EXAMINATION INTERPRETATION DISCUSSIONS WERE HAD BY ME WITH OTHER QUALIFIED HEALTHCARE PROFESSIONALS INDICATED FOR THE PATIENT'S CARE. DX & DISP Disposition: Discharge Departure Impression: Primary Impression: Chordoma tumor Additional Impression: Hypertension Condition: Stable Scripts Lidocaine (Lidoderm Patch 5%) 5 % Patch 1 PATCH TP DAILY for 10 Days, #10 PATCH 0 Refills may wear up to 12 hours Prov: ADELITA NIX NP 10/18/24 Additional Instructions: PLEASE KEEP YOUR APPOINTMENT WITH THE NEUROSURGEON SCHEDULED, TAKE YOUR TRAMADOL AT HOME NEEDED FOR YOUR HEADACHE. APPLIED LIDOCAINE PATCH NEEDED WELL. IF YOU HAVE ANY WORSENING SYMPTOMS LIKE FEVER, NAUSEA, VOMITING SEVERE PAIN DESPITE TAKING PAIN MEDICATION PLEASE RETURN BACK TO THE EMERGENCY ROOM. Referrals: SHERICE CORBIN MD (PCP) Time of Disposition: 22:31 I have reviewed the case, and I agree with, Diagnosis and Plan ADELITA NIX NP Oct 18, 2024 20:14
[2024-10-18] MEDS: mecliZINE HCL 25 MG TABLET PO STA (20:35)
[2024-10-18] MEDS: 0.9%NACL 1000ML 1,000 ML IV STA (20:35)
[2024-10-18] MEDS: ondanSETRON 4MG INJ IVP STA (20:35)
[2024-10-18] MEDS: morPHINE 2 MG SYG IVP STA ×2 (20:55→21:42)
--- NOTE | 2024-10-18 21:12 | HMCIMG ---
CT HEAD/BRAIN W/O CONTRAST HISTORY: Severe headaches COMPARISON: None TECHNIQUE: Multiple sequential axial images of the head were obtained from the base of the skull through vertex. Patient was not given contrast through intravenous route. FINDINGS: The ventricles and extraventricular CSF spaces are dilated consistent with cerebral atrophy. Nonspecific white matter changes seen. There is no midline shift, mass effect or herniation. No acute intracranial bleed is seen. Visualized portion of the paranasal sinuses are grossly within normal limits. IMPRESSION: 1. No acute intracranial bleed is seen. 2. Atrophy with white matter changes. CT was performed with one or more following dose reduction techniques: automated exposure control, adjustment of the mA and kv according to patient's size, or use of a iterative reconstruction technique.
--- NOTE | 2024-10-18 21:15 | HMCIMG ---
CT CERVICAL SPINE W/O CONTRAST HISTORY: Severe headaches COMPARISON: None TECHNIQUE: Multiple sequential axial images of the cervical spine were obtained including post processing sagittal and coronal reconstruction images. Patient was not given contrast through intravenous route. FINDINGS: Postop changes are seen of the cervical spine with laminectomy changes posteriorly. This is seen at C2-C4 levels. Central canal narrowing is seen throughout the cervical spine. There are artifacts limiting evaluation. Disc space narrowing is seen at the C5-6 level. There is bone osteopenia. There is straightening of normal lordotic cervical curvature which may be related to muscle spasm or positioning. There is no loss of vertebral height. Evaluation for disc and cord pathology is limited with CT study. No evidence of fracture or dislocation is seen. IMPRESSION: 1. No fracture is seen. DJD with spondylosis. Postop changes limiting evaluation. CT was performed with one or more following dose reduction techniques: automated exposure control, adjustment of the mA and kv according to patient's size, or use of a iterative reconstruction technique.
[2024-10-18] MEDS: hydrALAZine 20MG/ML VIAL IV STA (21:42)
[2024-10-18] MEDS: methoCARBamol 500 MG TABLET PO STA (21:43)
[2024-10-18] MEDS ORDERED: LIDOP TP (22:32)
[2024-10-18 22:38] VITALS: BP 149/69; PULSE 85; RESP 18; TEMP 98.5; O2SAT 100
[2024-10-18] MEDS: dexaMETHasone SOD PHOSPHATE 4 MG/ML 1ML VIAL IV STA (22:53)
[2024-10-18] MEDS: hydroMORPHone 0.5 MG SYG (0.5MG/0.5ML) IVP STA (22:54)
[2024-10-18] MEDS: LIDOCAINE 5% TOPICAL PATCH TP STA (22:54)
== END 2024-10-18 23:40 | disposition home or self-care (01) ==
LOC: EDH 17:25
DX: C41.2 Malignant neoplasm of vertebral column (principal); I10 Essential (primary) hypertension; F32.A Depression, unspecified; Z79.1 Long term (current) use of non-steroidal anti-inflammatories (NSAID); Z79.899 Other long term (current) drug therapy; Z90.49 Acquired absence of other specified parts of digestive tract; Z91.041 Radiographic dye allergy status
CPT/HCPCS: 99285; 70450; 96374; 96375; 96361; 84484; 80048; 85025; 36415; 72125; 96376; 93005; J1100; J1171; J2270 ×2; J7030; J0360; J2405

== ENCOUNTER → 2024-12-07 | Outpatient (CLI) | payer MEDICARE ==
[~2024-12-07] MED LIST changes: +CETI10TA57 PO; +CYCL15CA23 PO; +FOLI0.8C PO; +KETO10 PO; +LIDOP TP; +LISI40TA9 PO; +MAGN400T25 PO; +METH-820 PO
== END | disposition home or self-care (01) ==
LOC: LAB 11:28
PROVIDERS: ATTEND Internal Medicine Cardiovascular Disease
DX: I10 Essential (primary) hypertension (principal)
CPT/HCPCS: 36415; 82382; 83150; 83835; 84585